=== PATIENT | male | born 2000 | race Two or more races ===

== ENCOUNTER 2025-03-04 19:58 | Emergency (ER) | payer MEDICAID, OTHER ==
[~2025-03-04] VITALS: Ht 162.6 cm; Wt 61.0 kg
[2025-03-04 20:03] VITALS: O2SAT 99
[2025-03-04] MEDS ORDERED: HYDROMORPHONE HCL/PF 2MG/ML INJ IV ONE (20:45)
[2025-03-04 21:42] LABS: BASOPHILS % 0.9 % (0.0-2.0); EOSINOPHILS % 5.1 % (0.0-5.0); HEMATOCRIT. 38.6 % (42.0-52.0); HEMOGLOBIN. 12.4 g/dL (14.0-18.0); LYMPHOCYTES % 31.7 % (20.0-50.0); MEAN PLATELET VOLUME 9.0 fl (7.4-10.4); MONOCYTES % 9.5 % (2.0-8.0); NEUTROPHILS % 52.8 % (40.0-76.0); PLATELET 174 x1000/uL (130-400); RED BLOOD CELL COUNT 4.22 mill/uL (4.7-6.1); RED CELL DISTRIBUTION WIDTH 15.2 % (11.6-14.6)
[2025-03-04] MEDS: HYDROMORPHONE HCL/PF 1MG/ML INJ IV NR (21:53)
[2025-03-04 21:57] LABS: CREATININE 0.7 mg/dL (0.6-1.3); TROPONIN I HIGH SENSITIVITY 5 ng/L (3.0-53); UREA NITROGEN BLOOD 6 mg/dL (9-23)
[2025-03-04 21:58] LABS: ASPARTATE AMINOTRANSFERASE 142 IU/L (<34)
[2025-03-04 21:59] LABS: BILIRUBIN DIRECT < 0.1 mg/dL (<=3.0); BILIRUBIN TOTAL 0.3 mg/dL (0.1-1.0); PROTEIN TOTAL 6.6 g/dL (6.0-8.3)
[2025-03-04 23:42] LABS: TROPONIN I HIGH SENSITIVITY 5 ng/L (3.0-53)
[2025-03-05 00:20] VITALS: BP 97/62; PULSE 80; RESP 13; TEMP 37; O2SAT 96
== END 2025-03-05 00:46 | disposition home or self-care (01) ==
LOC: ER 19:58
DX: R07.89 Other chest pain (principal); J45.909 Unspecified asthma, uncomplicated
CPT/HCPCS: 99285; 96374; 71045; 80076; 80048; 83880; 83690; 85025; 85379; 84484; 36415; 93005; J1171